=== PATIENT | male | born 1960 | race Caucasian/White ===

== ENCOUNTER 2016-05-13 13:56 | Emergency (ER) | payer OTHER ==
[~2016-05-13] VITALS: Ht 175.3 cm; Wt 124.7 kg
[~2016-05-13 13:56] MED LIST: IMODIUM2 MG PO; K-DUR 10MEQ TA10 MEQ PO; LEVOTHYROXINE0.2 MG PO; NICODERM C21 MG/24 H TOP; Theragran Vitamins PO
--- NOTE | 2016-05-13 16:11 | ED GENERAL ADULT ---
History of Present Illness General Chief Complaint: Chest Pain Stated Complaint: CHEST PAIN; SOB Source: patient, family, old records Exam Limitations: no limitations Vital Signs & Intake/Output Vital Signs & Intake/Output Vital Signs Date Time Temp Pulse Resp B/P Pulse O2 O2 Flow FiO2 Ox Delivery Rate 05/13 1837 98.4 84 105/74 05/13 1700 98.6 65 18 125/66 98 Room Air 05/13 1627 94 05/13 1407 99.5 91 18 126/83 95 Room Air Allergies Coded Allergies: NO KNOWN ALLERGIES (05/13/16) No Known Drug Allergies (05/13/16) Reconcile Medications Albuterol Sulfate (Proair Hfa) 90 MCG HFA.AER.AD 2-4 PUF INH Q4-6 PRN PRN shortness of breath Ibuprofen 800 MG TABLET 1 TAB PO Q6PRN PRN pain Levothyroxine Sodium 200 MCG TABLET 1 TAB PO DAILY HYPOTHYROID (Reported) Loperamide Hydrochloride (Imodium) 2 MG CAP 1 CAP PO Q4-6 PRN DIARRHEA TAKE 1 CAPSULE AFTER EVERY STOOL. MAXIMUM OF 8 CAPSULES A DAY. 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 EKG DONE ON ARRIVAL. Triage Nurses Notes Reviewed? yes Onset: Evening Duration: hour(s):, constant, continues in ED, getting worse Timing: recent history Injury Environment: home Severity: moderate Modifying Factors: Improves With: rest. Worsens With: movement. Associated Symptoms: chest pain HPI: 1 day prior to admission patient complains of generalized abdominal discomfort anorexia and fatigue. The morning of admission he went to work feeling very fatigued with body aches congestion chills cough chest pain described as achy nonradiating. He denies fever vomiting diarrhea shortness of breath headache dysuria rash bleeding Past History Travel History Traveled to [place] past 21 day No Medical History Any Pertinent Medical History? none Neurological: NONE EENT: NONE Cardiovascular: NONE Respiratory: NONE Gastrointestinal: NONE Hepatic: NONE Renal: NONE Musculoskeletal: NONE Psychiatric: NONE Endocrine: NONE History of MRSA: No History of VRE: No History of CDIFF: No Pneumonia Vaccine: 11/25/08 Influenza Vaccine: 01/25/09 Surgical History Surgical History: non-contributory Psychosocial History Who do you live with Patient/Self Services at Home None What is your primary language Azeri Tobacco Use: Never used ETOH Use: denies use Family History Family History, If Any: Relation not specified for: FH: alcoholism FH: CAD (coronary artery disease) FH: CVA (cerebrovascular accident) FH: diabetes mellitus FH: HTN (hypertension) Hx Contributory? No Review of Systems Review of Systems Constitutional: Reports: see HPI, chills, malaise, weakness. EENTM: Reports: see HPI. Respiratory: Reports: see HPI, cough, short of breath. Cardiovascular: Reports: see HPI, chest pain. GI: Reports: see HPI, abdominal pain, nausea. Genitourinary: Reports: no symptoms. Musculoskeletal: Reports: see HPI, muscle pain. Skin: Reports: no symptoms. Neurological/Psychological: Reports: no symptoms. Hematologic/Endocrine: Reports: no symptoms. Immunologic/Allergic: Reports: no symptoms. All Other Systems: Reviewed and Negative Physical Exam Physical Exam General Appearance: well developed/nourished, alert, awake, anxious, mild distress, obese Head: atraumatic, normal appearance, tenderness (Sinus) Eyes: Bilateral: normal appearance, PERRL, EOMI. Ears, Nose, Throat: nasal congestion, pharyngeal erythema Neck: normal inspection, supple, full range of motion, lymphadenopathy (R), lymphadenopathy (L), no midline tenderness Respiratory: normal breath sounds, chest non-tender, no respiratory distress, quiet respiration, lungs clear Cardiovascular: regular rate/rhythm, normal peripheral pulses, norml femoral pulses equa Peripheral Pulses: 4+ carotid (R), 4+ carotid (L) Gastrointestinal: normal bowel sounds, soft, non-tender, no organomegaly Back: normal inspection, normal range of motion Extremities: normal inspection, normal capillary refill, normal range of motion, no edema Neurologic/Psych: no motor/sensory deficits, awake, alert, oriented x 3, normal gait, normal mood/affect, rn lab II-XII nml as tested Reflexes: 2+: bicep (R), bicep (L). Skin: intact, normal color, warm/dry Lymphatic: adenopathy Core Measures ACS in differential dx? Yes CVA/TIA Diagnosis: No Severe Sepsis Present: No Septic Shock Present: No Progress Differential Diagnoses I considered the following diagnoses in my evaluation of the patient: Influenza pneumonia bronchitis sinusitis Plan of Care: Orders Procedure Date/time Status RAPID VIRAL INFLUENZA A 05/13 1601 Complete TROPONIN LEVEL 05/13 1601 Complete LIPASE 05/13 1601 Complete COMPREHENSIVE METABOLIC PANEL 05/13 1601 Complete CBC WITHOUT DIFFERENTIAL 05/13 1601 Complete EKG 05/13 1357 Active Laboratory Tests 05/13/16 1635: Anion Gap 11, Estimated GFR > 60, BUN/Creatinine Ratio 25.7 H, Glucose 90, Calcium 7.9 L, Total Bilirubin 1.1, AST 26, ALT 38, Alkaline Phosphatase 69, Troponin I < 0.01, Total Protein 6.7, Albumin 3.6, Globulin 3.1, Albumin/ Globulin Ratio 1.2, Lipase 73, CBC w Diff NO MAN DIFF REQ, RBC 5.27, MCV 87.2, MCH 29.2, RDW 13.4, MPV 7.4, Gran % 86.7 H, Lymphocytes % 6.1 L, Monocytes % 6.4, Eosinophils % 0.7, Basophils % 0.1, Absolute Granulocytes 7.4 H, Absolute Lymphocytes 0.5 L, Absolute Monocytes 0.6, Absolute Eosinophils 0.1, Absolute Basophils 0, PUBS MCHC 33.5 Diagnostic Imaging: Viewed by Me: Radiology Read. Discussed w/RAD: Radiology Read. CXR Impression: no acute abnormality, no infiltrates Initial ED EKG: normal axis, normal intervals, normal p-waves, normal QRS complex, normal sinus rhythm, no ST T wave changes Prior EKG: unchanged Rhythm Strip: normal sinus rhythm Departure Departure Time of Disposition: 1837 Disposition: HOME OR SELF CARE Condition: Stable Clinical Impression Primary Impression: Influenza Referrals: CLEMENTE WINTER MCCARTHY (PCP/Family) Departure Forms: Customer Survey General Discharge Information Prescriptions: Current Visit Scripts Oseltamivir Phosphate (Tamiflu) 1 CAP PO BID #10 CAP Ibuprofen 1 TAB PO Q6PRN PRN pain #50 TAB Oxymetazoline HCl (Afrin) 2 SPRAY NASB BID #30 ML Albuterol Sulfate (Proair Hfa) 2-4 PUF INH Q4-6 PRN PRN shortness of breath #1 INHAL Ondansetron (Zofran Odt) 1 TAB SL TID PRN nausea #15 TAB Critical Care Note Critical Care Note Critical Care Time: non-applicable
--- NOTE | 2016-05-13 16:39 | RADIOLOGY REPORT ---
EXAMINATION: XR CHEST CLINICAL INFORMATION: Cough, fever COMPARISON: 11/06/2011 TECHNIQUE: 2 views of the chest were obtained. FINDINGS: No focal consolidation, pleural effusion or pneumothorax. Mild bronchial wall thickening. Heart size is normal. No acute osseous abnormality. IMPRESSION: No acute cardiopulmonary process. Mild bronchial wall thickening.
[2016-05-13 17:05] LABS: ABSOLUTE BASOPHIL COUNT 0 /CUMM (0.0-0.2); ABSOLUTE EOSINOPHIL COUNT 0.1 /CUMM (0.0-0.7); ABSOLUTE GRANULOCYTE CT 7.4 /CUMM (1.4-6.5); ABSOLUTE LYMPH COUNT 0.5 /CUMM (1.2-3.4); ABSOLUTE MONOCYTE COUNT 0.6 /CUMM (0.10-0.60); BASOPHIL % 0.1 % (0.0-2.0); EOSINOPHIL % 0.7 % (0-5); HEMATOCRIT 45.9 % (42-52); MEAN CORPUSCULAR HGB 29.2 PG (27.0-31.0); MEAN CORPUSCULAR HGB CONC 33.5 G/DL (33.0-37.0); MEAN CORPUSCULAR VOLUME 87.2 FL (80.0-94.0); MEAN PLATELET VOLUME 7.4 FL (7.4-10.4); PLATELET COUNT 221 /CUMM (130-400); RBC DISTRIBUTION WIDTH 13.4 % (11.5-14.5); RED BLOOD CELL CT 5.27 /CUMM (4.70-6.10); WHITE BLOOD CELL COUNT 8.6 /CUMM (4.8-10.8)
[2016-05-13 17:06] LABS: GRANULOCYTE % 86.7 % (42.2-75.2)
[2016-05-13] MEDS ORDERED: ZOFRAN ODT4 M1 SL (17:56)
[2016-05-13] MEDS ORDERED: AFRIN30 ML NASB (17:56)
[2016-05-13] MEDS ORDERED: TAMIFLU75 M1 PO (17:56)
[2016-05-13] MEDS ORDERED: IBUPROFEN800 M1 PO (17:56)
[2016-05-13] MEDS ORDERED: PROAIR HFA8.5 GM INH (17:56)
[2016-05-13 18:37] VITALS: BP 105/74
== END 2016-05-13 18:39 ==
LOC: ERH 13:56
PROVIDERS: Emergency Medicine
DX: J11.1 Influenza due to unidentified influenza virus with other respiratory manifestations (principal); R07.9 Chest pain, unspecified
CPT/HCPCS: 1263; 87804; 87804-59; 93005; 93010; 96361; 96374; 96375; J1885; J2405

== ENCOUNTER 2017-12-28 11:57 | Emergency (ER) | payer OTHER ==
[~2017-12-28] VITALS: Ht 175.3 cm; Wt 131.5 kg
[~2017-12-28 11:57] MED LIST changes: +AFRIN30 ML NASB; +CELEXA20 M1 PO; +CHLORDIAZEPOXID25 M3 PO; +IBUPROFEN800 M1 PO; -LEVOTHYROXINE0.2 MG PO; +LEVOTHYROXINE200 MC1 PO; +PROAIR HFA8.5 GM INH; +TAMIFLU75 M1 PO; +VISTARIL50 M1 PO; +ZOFRAN ODT4 M1 SL
[2017-12-28 13:17] LABS: ABSOLUTE BASOPHIL COUNT 0 /CUMM (0.0-0.2); ABSOLUTE EOSINOPHIL COUNT 0.1 /CUMM (0.0-0.7); ABSOLUTE GRANULOCYTE CT 3.9 /CUMM (1.4-6.5); ABSOLUTE LYMPH COUNT 0.9 /CUMM (1.2-3.4); ABSOLUTE MONOCYTE COUNT 0.6 /CUMM (0.10-0.60); BASOPHIL % 0.6 % (0.0-2.0); EOSINOPHIL % 1.6 % (0-5); GRANULOCYTE % 70.4 % (42.2-75.2); HEMATOCRIT 38.2 % (42-52); MEAN CORPUSCULAR HGB 31.3 PG (27.0-31.0); MEAN CORPUSCULAR HGB CONC 35.1 G/DL (33.0-37.0); MEAN CORPUSCULAR VOLUME 89.4 FL (80.0-94.0); MEAN PLATELET VOLUME 6.5 FL (7.4-10.4); PLATELET COUNT 158 /CUMM (130-400); RBC DISTRIBUTION WIDTH 16.1 % (11.5-14.5); RED BLOOD CELL CT 4.27 /CUMM (4.70-6.10); WHITE BLOOD CELL COUNT 5.5 /CUMM (4.8-10.8)
--- NOTE | 2017-12-28 14:36 | ED GENERAL ADULT ---
History of Present Illness General Chief Complaint: ETOH/Drug Related Complaint Stated Complaint: ETOH DETOX Source: patient, old records Exam Limitations: no limitations Vital Signs & Intake/Output Vital Signs & Intake/Output Vital Signs Date Time Temp Pulse Resp B/P B/P Pulse O2 O2 Flow FiO2 Mean Ox Delivery Rate 12/29 2021 97.8 77 17 124/68 97 Room Air Allergies Coded Allergies: No Known Allergies (12/28/17) Triage Note: TRIAGE: PT TO ER WITH FRIENDS FOR REQUEST OF ETOH DETOX. ALSO REPORTS "I'M WOBBLY AND MY BALANCE IS WAY OFF", THINKS IT MAY BE RELATED TO FALL AT WORK 12/01. COMPLAINS OF OF PAIN TO L HAND R/T FALL. WAS SEEN FOR THAT INJURY BY PCP (DR YORK) AND JESICA DIAZ FOR XRAYS. HAS BEEN GETTING OCCUPATIONAL AND PHYSICAL THERAPY FOR SAME. LAST DRINK 6 AM. ADMITS TO DRINKING "AT LEAST A 6 PACK AND A HALF BOTTLE OF VODKA" DAILY. DRANK 2/3 GALLON OF VODKA YESTERDAY. DAILY DRINKER SINCE VACATION IN NOVEMBER AND PRIOR TO THAT HAD BEEN SOBER FOR 8 MONTHS. DENIES OTHER SUBSTANCE USE OR ABUSE. -SI/HI. REPORTS HX OF GETTING SHAKEY WHEN NOT DRINKING BUT DENIES ANY WITHDRAWAL SEIZURES. AMBULATES WITH A CANE SINCE FALL AT WORK. WEARS ANTONELLA BRACE TO RLE R/T HX OF RECONSTRUCTIVE SURGERY TO SAME EXTREMITY. MALE FRIEND WITH PATIENT STATES SINCE HE'S BEEN DRINKING HE HAS HAD MOOD SWINGS WHERE HE GETS VERBALLY AGGRESIVE AT TIMES. FEMALE FRIEND REPORTS HE HAS HAD TROUBLE WITH INCONTINENCE LATELY. Triage Nurses Notes Reviewed? yes HPI: This is a 49-year-old male with history of chronic alcoholism, tobacco abuse, hypothyroidism, presented to the emergency department with relapse of alcohol abuse following 8 months of sobriety. Patient states that he started drinking again in November during a vacation. Since that time, he has been drinking "large quantities of vodka every day ". Today, he complains of ongoing alcohol use. He denies any polysubstance abuse, trauma, other illness. He denies suicidality or homicidality.. He has no history of withdrawal seizure. Has any chest pain, shortness of breath, dizziness, nausea, vomiting. (Rl MCCARTHY,Chao) Reconcile Medications Citalopram Hydrobromide (Celexa) 20 MG TABLET 1 TAB PO DAILY ANXIETY/ DEPRESSION Levothyroxine Sodium 200 MCG TABLET 1 TAB PO DAILY AC THYROID (Reported) LORazepam (Ativan) 1 MG TAB 2 TAB PO TID ALCOHOL WITHDRAWAL DAY 1: 2 TAB 3X/DAY DAY 2: 1 TAB 4X/DAY DAY 3: 1 TAB 3X/DAY DAY 4: 1 TAB 2X/DAY DAY 5: 1 TAB Naproxen Sodium (Aleve) 220 MG TABLET 1 TAB PO DAILY PRN PAIN (Reported) Nicotine (Nicoderm Cq) 14 MG/24 HOUR PATCH.TD24 1 PAT TOP DAILY SMOKING CESSATION (Elpidio Jarrell MD) Past History Travel History Traveled to [place] past 21 day No Medical History Any Pertinent Medical History? 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 No (Chao Shine MD) Review of Systems Review of Systems Constitutional: Reports: no symptoms. EENTM: Reports: no symptoms. Respiratory: Reports: no symptoms. Cardiovascular: Reports: see HPI. GI: Reports: see HPI. Genitourinary: Reports: no symptoms. Musculoskeletal: Reports: no symptoms. Skin: Reports: no symptoms. Neurological/Psychological: Reports: no symptoms. Hematologic/Endocrine: Reports: no symptoms. Immunologic/Allergic: Reports: no symptoms. (Chao Shine MD) Physical Exam Physical Exam General Appearance: well developed/nourished, no apparent distress Head: atraumatic Eyes: Bilateral: normal appearance. Ears, Nose, Throat: normal pharynx, normal ENT inspection Neck: normal inspection, supple, full range of motion Respiratory: normal breath sounds, chest non-tender, no respiratory distress Cardiovascular: regular rate/rhythm, normal peripheral pulses Gastrointestinal: soft, non-tender Back: normal inspection, normal range of motion Extremities: normal inspection, normal capillary refill, normal range of motion, no edema Skin: intact, normal color, warm/dry Core Measures ACS in differential dx? No CVA/TIA Diagnosis: No Sepsis Present: No Sepsis Focused Exam Completed? No (Chao Shine MD) Progress Differential Diagnoses I considered the following diagnoses in my evaluation of the patient: Medically suspect mild alcohol intoxication in this patient based on exam, history, and presentation. Incipient withdrawal is also possible. Mild concern for metabolic derangement given poor oral intake recently in the setting of heavy alcohol use. Low suspicion for acute traumatic process/ICH/concussion. Doubt acute thoracoabdominal trauma. Plan of Care: Orders Procedure Date/time Status CASE MANAGEMENT CONSULT 12/29 1520 Active ED CRISIS PSYCH CONSULT 12/29 1023 Active PT Evaluate & Treat 12/29 0539 Active MOBILITY D/C STATUS 12/29 UNK Complete MOBILITY GOAL STATUS 12/29 UNK Complete MOBILITY CURRENT STATUS 12/29 UNK Complete Gait Training, 15 Min 12/29 UNK Complete PT EVAL LOW COMPLEX 20 MIN 12/29 UNK Complete Labs reveal normocytic anemia, hyponatremia to 129. Patient administered liter normal saline, plan for reassessment. CIWA score is low. Repeat sodium improved modestly to 130. Patient remains hemodynamically and neurologically stable. Plan for reassessment in the morning, possible discharge to outpatient rehab facility such as [facility] versus inpatient admission. Care signed out to Dr. Serrano. Initial ED EKG: none (Rl MCCARTHY,Chao) Hand-Off Endorsed To: Elpidio Jarrell MD Endorsed Time: 0700 Pending: consult (PT) Comments: Patient had multiple episodes of loose stools. Patient is very unsteady on his feet and required a wheelchair to get into the bathroom. (Maggie MCCARTHY,Drew Bedoya) Comments: 12/29/2017 3:06:46 PM patient signed out to me by Dr. Jarrell at shift manager change. Patient's case discussed with procurement director who requests case management consultation for enhancement of home care given the patient's chronic medical issues such as difficulty ambulating and the number of stairs he needs to accommodate at home. 12/29/2017 3:55:06 PM according to the procurement director, the patient will follow up as an outpatient with the [facility]. 12/29/2017 7:28:00 PM patient has been evaluated by case management for enhanced home care. (Lonnie Madison MD) Departure Departure Time of Disposition: 2250 Condition: Stable Clinical Impression Primary Impression: Alcohol intoxication Referrals: Chriss York MD (PCP/Family) (Chao Shine MD) Departure Disposition: HOME OR SELF CARE Additional Instructions: Follow-up with the [facility] program on January 05 at 11 AM as scheduled. Ativan taper as prescribed (do not drink alcohol). Arrange for follow-up appointment with your primary care physician within the next 48-72 hours for reevaluation. Return if any concerns or sudden worsening. Departure Forms: Customer Survey General Discharge Information (Lonnie Madison MD) Departure Prescriptions: Current Visit Scripts LORazepam (Ativan) 2 TAB PO TID #16 TAB DAY 1: 2 TAB 3X/DAY DAY 2: 1 TAB 4X/DAY DAY 3: 1 TAB 3X/DAY DAY 4: 1 TAB 2X/DAY DAY 5: 1 TAB Nicotine (Nicoderm Cq) 1 PAT TOP DAILY #14 PAT PA/HOGSHEAD PACKER Co-Sign Statement Statement: ED Attending supervision documentation- I saw and evaluated the patient. I have also reviewed all the pertinent lab results and diagnostic results. I agree with the findings and the plan of care as documented in the PA's/HOGSHEAD PACKER's documentation. x I have reviewed the ED Record and agree with the PA's/HOGSHEAD PACKER's documentation. [] Additions or exceptions (if any) to the PAs/HOGSHEAD PACKER's note and plan are summarized below: [] (Elpidio Jarrell MD) Critical Care Note Critical Care Note Critical Care Time: non-applicable (Chao Shine MD) reevaluation. Return if any concerns or sudden worsening. Departure Forms: Customer Survey General Discharge Information Prescriptions: Current Visit Scripts LORazepam (Ativan) 2 TAB PO TID #16 TAB DAY 1: 2 TAB 3X/DAY DAY 2: 1 TAB 4X/DAY DAY 3: 1 TAB 3X/DAY DAY 4: 1 TAB 2X/DAY DAY 5: 1 TAB (Lonnie Madison MD) Critical Care Note Critical Care Note Critical Care Time: non-applicable (Chao Shine MD) Critical Care Note Critical Care Time: non-applicable (Chao Shine MD)
[2017-12-29] MEDS ORDERED: ALEVE220 M2 PO (10:04)
--- NOTE | 2017-12-29 15:38 | ED PSYCH CRISIS CONSULTATION ---
Crisis Consult Basic Assessment Date of Consult: 12/29/17 Responsible Person/Accompanied By: self Insurance Authorization: Insurance #1: Insurance name: AMAN LLOYD Phone number: Policy number: [id number] Group number: Authorization number: ED Provider: Patient's ED Provider: Chao Shine MD Primary Care Physician: Patient's PCP: Chriss York MD PCP's Current Psychiatrist: none Chief Complaint: ETOH/Drug Related Complaint Patient's Quote: "I want help" Present Illness: Pt is a 57 year old single male presenting in the ED intoxicated. Pt was ETOH detox pt for the majority of his ED visit until a friend of the pt told nursing that pt was talking to his stuffed animals and they were concerned about his mental health. Therefore a crisis consult was put in. Pt was alert and oriented x3. Pt was polite during the interviewing, answering, "yes ma'am" and "no ma'am". His throughts were goal directed and rational. No evidence of psychosis. Pt denies SI/HI/AH/VH. Pt's BAL was 200 and UDS was negative. Pt states he relapsed on 11/21/17 when he went on vacation with a ex girlfriend that is now a friend. He states she was a trigger for his relapse. He had 8 months sober until 11/21/17. Pt is now drinking anywhere from 1 quart to 2/ 3 of a gallon of vodka almost daily. Pt did not meet criteria for medical detox based on CIWA scores. Pt states he was in [facility] 8-10 years ago. He denies other mental health treatment or psychiatric hospitalizations. Pt denies formal substance abuse treatment. Pt states he obtained sobriety by having a friend help him through "it". Pt is seeking treatment in order to stop drinking. 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 Of note, pt was seen by PT while in ED. Recommendations were for pt to continue with outpatient OT/PT. Pt is agreeable to IOP at [facility]. Case reviewed with Kristy Roblero, IOP coordinator and Dr. Eveline Brand. Pt is psychiatrically cleared for discharge. Pt to follow up with IOP on 01/05/18 @ 11 a.m. Patient's Address: [address] [place] [address] Other Phone Number: Who Do You Live With? Patient/Self Family/Informants Interviewed: Crisis spoke to Mamta Schmitt and Jama Carter who were present in the ED visiting patient. They would like to see him get help in the home. They apear more concerned about him getting assistance in the home than his mental health. They are happy to hear pt is agreeable with IOP Allergies - Coded Allergies: No Known Allergies (12/28/17) Current Medications - Scheduled Medications Citalopram Hydrobromide (Celexa) 20 MG TABLET 1 TAB PO DAILY ANXIETY/ DEPRESSION #30 TAB Prescribed by Luis Burciaga on 05/26/17 Levothyroxine Sodium 200 MCG TABLET 1 TAB PO DAILY AC THYROID (Reported) Entered as Reported by Mikey Wallis on 10/02/13 1153 Last Taken: At an unknown date and time Scheduled PRN Medications Naproxen Sodium (Aleve) 220 MG TABLET 1 TAB PO DAILY PRN PAIN (Reported) Entered as Reported by Issa Bullock on 12/29/17 1004 Laboratory Results: Laboratory Tests 12/28/17 1820: Anion Gap 11, Estimated GFR > 60, BUN/Creatinine Ratio 18.0, Glucose 106 H, Calcium 7.4 L Past History Past Medical History Neurological: NONE EENT: NONE Cardiovascular: NONE Respiratory: NONE Gastrointestinal: NONE Hepatic: NONE Renal: NONE Musculoskeletal: NONE Psychiatric: alcohol dependence Endocrine: hypothyroidism Blood Disorders: NONE Cancer(s): NONE 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 Pt is seeking treatment Physical Limitations (Interventions): Pt walks with a walker/keating Pt has OT/PT services at the outpatient level from a fall on 12/01/17 Psychiatric Treatment History Psych Treatment Psychiatric Treatment Yes Inpatient Treatment Yes Outpatient Treatment Yes Location of Treatment [facility] Reason for Treatment etoh detox Dates of Treatment 8-10 years ago pt was [facility], pt did some OP and IOP per record Response to Treatment pt has chronic relapses Diagnosis by History: etoh dep Substance Use/Abuse History Drug Use/Abuse 1 Substances Used/Abused Yes Substance Used/Abused Alcohol Last Used 12/28/17 How much used/taken pt reports 1 quart per day, previously reported 2/3 of a gallon How often almost daily For how long pt reports he relapsed 11/21/17 Route of use oral Drug Use/Abuse 2 Substances Used/Abused Yes Substance Used/Abused Nicotine Last Used 12/28/17 How much used/taken 1/2 pack How often daily Substance Abuse Treatment Substance Abuse Treatment Past Substance Abuse TX Yes Inpatient Treatment Yes (Pt @ [facility] for detox ) Current Mental Status Mental Status Orientation: Person, Place, Situation Affect: Appropriate Speech: Normal Neuro-vegetative: WNL Appearance Appearance- Dress/Hygiene: pt presents in hospital attire. Pt is presents unkempt. Behaviors Thought Process: WNL Thought Content: WNL Memory: WNL Insight: Fair SI/HI Risk Assessment Past Suicidal Ideation/Attempts No Current Suicidal Ideation/Att No Past Homicidal Ideation/Att: No Current Homicidal Ideation/Attempts No Degree of Intent: None Risk Factors: SA/MH hospitalized, substance abuse, poor impulse control, male Lethality Ratin PTSD Checklist PTSD Done? patient declined ED Management Sitter: Yes Restraints: No DSM5/PS Stressors/Medical Prob Diagnosis' (DSM 5, Stressors, Medical): F10.20 Alcohol Abuse Disorder, Severe Stressors: out of work due to fall, financial issues, transportation issues Medical- pt fell on 12/01, recieving OT/ PT outpatient related to fall Current GAF: 45 Departure Disposition Psych Medical Clearance Date: 12/29/17 Medically Cleared at: 1500 Time Started: 1500 Time Ended: 1530 Psychiatrist Consulted: Dr. Eveline Brand Date Disposition Established: 12/29/17 Time Disposition Established: 1355 Plan for Disposition - Modality: IOP Facility: [facility] Follow-up Appt Date: 01/05/18 Follow-Up Appt Time: 1100 Contact: ruth hughes Rationale for Disposition: Pt presented to ED intoxicated. Pt denies SI/HI/AH/VH. Pt's friends are not concerned for pt's safety in terms of suicide. Friends are concerned about pt's ability to do his ADLs. Therefore case management consult was put in. Pt is willing to go to IOP which he believes will be better than rehab so he can continue his PT/OT appointments. Referrals York ,Chriss Cosme (PCP/Family)
[2017-12-29] MEDS ORDERED: ATIVAN1 M1 PO (19:35)
[2017-12-29] MEDS ORDERED: NICODERM CQ1 EAC1 TOP (20:17)
[2017-12-29 20:22] VITALS: BP 124/68
== END 2017-12-29 20:22 ==
LOC: ERH 11:57
PROVIDERS: Physician Assistant Medical
DX: F10.129 Alcohol abuse with intoxication, unspecified (principal); E03.9 Hypothyroidism, unspecified; F17.210 Nicotine dependence, cigarettes, uncomplicated
CPT/HCPCS: 80307; 96374; 96376; 97116-GP; 97161-GP; G0463; G0480; G8978-GP; G8979-GP; G8980-GP